=== PATIENT | female | born 1940 | race Caucasian/White ===

== ENCOUNTER 2021-09-03 17:08 | Emergency (ER) | payer MEDICARE, OTHER ==
[~2021-09-03] VITALS: Ht 165.1 cm; Wt 63.6 kg
[2021-09-03 18:15] VITALS: BP 146/75
[2021-09-03] MEDS ORDERED: DICL50TA4 PO (19:06)
[2021-09-03] MEDS ORDERED: CYCL10TA19 PO (19:06)
--- NOTE | 2021-09-03 19:06 | PHYS DOC ---
Past Medical History Past Medical History: Diabetes-Type II Past Surgical History: Other Additional Past Surgical Histo: left leg Smoking Status: Never Smoker Alcohol Use: None Drug Use: None General Adult EDM: Chief Complaint: BACK PAIN - NO INJURY HPI: HPI: Patient is an 80-year-old female who presents today with right-sided back pain with pain that goes down the right leg. Patient states that over the weekend her and her were at the [employer] [place] the [place] and they drove back yesterday which is approximately a 3-hour car ride, and she said as of the ride continued her back pain kept getting worse and the pain radiated down her leg. Patient denies any trauma or fall. Patient denies any bowel or bladder concerns such as loss of bowel or bladder control or inability to void or defecate. Patient states that she has been placing some topical diclofenac cream on her back and she said that helps for short periods of time but she has not been taking any other medications. Review of Systems: Review of Systems: Constitutional: Denies fever or chills. [] Eyes: Denies change in visual acuity. [] HENT: Denies nasal congestion or sore throat. [] Respiratory: Denies cough or shortness of breath. [] Cardiovascular: Denies chest pain or edema. [] GI: Denies abdominal pain, nausea, vomiting, bloody stools or diarrhea. [] : Denies dysuria. [] Musculoskeletal: Back pain Integument: Denies rash. [] Neurologic: Denies headache, focal weakness or sensory changes. [] Endocrine: Denies polyuria or polydipsia. [] Lymphatic: Denies swollen glands. [] Psychiatric: Denies depression or anxiety. [] Heart Score: C/O Chest Pain: No Risk Factors: Risk Factors: DM, Current or recent (<one month) smoker, HTN, HLP, family history of CAD, obesity. Risk Scores: Score 0 - 3: 2.5% MACE over next 6 weeks - Discharge Home Score 4 - 6: 20.3% MACE over next 6 weeks - Admit for Clinical Observation Score 7 - 10: 72.7% MACE over next 6 weeks - Early Invasive Strategies Allergies: Allergies: Current Medications Medications (Trade) Dose Ordered Sig/Araseli Route PRN Reason Start Time Stop Time Status Last Admin Dose Admin Ketorolac Tromethamine (Toradol Im) 30 mg 1X ONCE IM 09/03/21 19:15 09/03/21 20:09 DC 09/03/21 20:08 Physical Exam: PE: Constitutional: Well developed, well nourished, no acute distress, non-toxic appearance. [] HENT: Normocephalic, atraumatic, bilateral external ears normal, oropharynx moist, no oral exudates, nose normal. [] Eyes: PERRLA, EOMI, conjunctiva normal, no discharge. [] Neck: Normal range of motion, no tenderness, supple, no stridor. [] Cardiovascular:Heart rate regular rhythm, no murmur [] Lungs & Thorax: Bilateral breath sounds clear to auscultation [] Abdomen: Bowel sounds normal, soft, no tenderness, no masses, no pulsatile masses. [] Skin: Warm, dry, no erythema, no rash. [] Back: Patient has right low back pain, no crepitus, erythema, contusions, lacerations, or abrasions noted. Patient does report leg radiculopathy pain across his the hip across the thigh into the knee and down to the top of the foot, patient does have a steady gait with no dropfoot noted sensory is intact along with vascular intact distal to the pain, dorsalis pedis pulse is 2+ cap refill is less than 2 seconds. Extremities: No tenderness, no cyanosis, no clubbing, ROM intact, no edema. [] Neurologic: Alert and oriented X 3, normal motor function, normal sensory function, no focal deficits noted. [] Psychologic: Affect normal, judgement normal, mood normal. [] Current Patient Data: Vital Signs: Vital Signs Date Time Temp Pulse Resp B/P (MAP) Pulse Ox O2 Delivery O2 Flow Rate FiO2 09/03/21 18:15 99.1 86 18 146/75 (98) 97 Room Air 99.1 EKG: EKG: [] Radiology/Procedures: Radiology/Procedures: [] Course & Med Decision Making: Course & Med Decision Making Pertinent Labs and Imaging studies reviewed. (See chart for details) Patient in no acute distress, no cauda equina signs and symptoms noted, since the patient has had no trauma I will not CT the lumbar area for compression fractures, we will place the patient on some oral nonsteroidal anti- inflammatories, Medrol Dosepak and some Flexeril. Patient can ice the affected area 20 minutes on 3-4 times daily and follow-up with Dr. Porter this week for further evaluation and management. Patient is agreeable with the plan of care and with outpatient management. Sarah Disclaimer: Sarah Disclaimer: This electronic medical record was generated, in whole or in part, using a voice recognition dictation system. Departure Departure Impression: Primary Impression: Back pain with radiculopathy Disposition: HOME / SELF CARE / HOMELESS Condition: STABLE Referrals: NEERAJ PORTER MD (PCP) Patient Instructions: Back Pain, Adult Additional Instructions: Diclofenac sodium take 1 tablet twice daily as needed for pain, take with food may cause upset stomach Flexeril take 5 mg every 8 hours as needed for muscle spasms and pain, use with caution may cause drowsiness Ice to the affected area 20 minutes on 3-4 times daily You may continue to use the topical medication that you have been using if it helps Follow-up with Dr. Porter in the next 3 to 5 days for further evaluation and management Return to the emergency department should you have loss of bowel or bladder control, you are having inability to void or defecate, any more numbness or tingling in your leg, you start dragging your right foot or any other concerns you may have. Scripts Methylprednisolone (MEDROL) 4 Mg Tab.ds.pk 1 PKG PO UD, #1 PKG Prov: SOMMER KHAN APRN 09/03/21 Cyclobenzaprine Hcl (CYCLOBENZAPRINE HCL) 10 Mg Tablet 5 MG PO TID PRN PRN for MUSCLE SPASMS, #10 TAB Prov: SOMMER KHAN APRN 09/03/21 Diclofenac Sodium (DICLOFENAC SODIUM) 50 Mg Tablet.dr 1 TAB PO PRN Q12HR PRN for MUSCLE PAIN, #60 TAB 1 Refill Prov: SOMMER KHAN [employer] 09/03/21 SOMMER KHAN APRN September 03, 2021 19:06
[2021-09-03] MEDS ORDERED: METH4TAB2 PO (19:08)
[2021-09-03] MEDS ORDERED: KETOROLAC 60 MG/2 ML VIAL. IM ONE (19:15)
[2021-09-03] MEDS ORDERED: KETOROLAC 30 MG/ML VIAL. ONE (20:01)
[2021-09-03] MEDS ORDERED: KETOROLAC 60 MG/2 ML VIAL. ONE (20:07)
== END 2021-09-03 20:15 | disposition home or self-care (01) ==
LOC: ER 17:08
DX: M54.16 Radiculopathy, lumbar region (principal); E11.9 Type 2 diabetes mellitus without complications
CPT/HCPCS: 96372; 99283; J1885